=== PATIENT | female | born 1945 | race Caucasian/White ===

== ENCOUNTER → 2018-09-12 15:21 | Outpatient (CLI) | payer MEDICARE, SELFPAY ==
--- NOTE | 2018-09-12 15:23 | RAD_ITS ---
STUDY: X-RAY - RIGHT CLAVICLE REASON FOR EXAM: Female, 72 years old. Injury, clavicle fracture TECHNIQUE: 2 view(s) of the clavicle. COMPARISON: None. FINDINGS: Transverse fracture of the distal clavicle with cephalad displacement (more than one shafts width displacement) of the proximal fragment and foreshortening identified. The distal clavicle appears to be adequately opposed to the coracoid. Normal acromioclavicular articulation. Normal visualized sternoclavicular articulation. Normal visualized pulmonary apex. RAD/Clavicle IMPRESSION: Displaced and foreshortened distal clavicle fracture. Electronically Signed: Tigre Stovall MD at 14:53 EST , Service support ,
== END ==
PROVIDERS: Referring Provider Physician Assistant; Visit Provider Physician Assistant
DX: S42.001A Fracture of unspecified part of right clavicle, initial encounter for closed fracture (principal); X58.XXXA Exposure to other specified factors, initial encounter; Y93.9 Activity, unspecified; Y92.9 Unspecified place or not applicable; Y99.9 Unspecified external cause status
CPT/HCPCS: 73000